=== PATIENT | male | born 1960 | race Caucasian/White ===

== ENCOUNTER → 2016-12-15 | Outpatient (CLI) | payer OTHER ==
--- NOTE | 2016-12-15 14:55 | DIAGNOSTIC IMAGING REPORT ---
VENOUS DOPPLER UPR EXT UNIL CLINICAL HISTORY: 56 years-old Male presenting with thoracic outlet syndrome. TECHNIQUE: Pulse volume recording of the bilateral upper extremities was performed. Provocative maneuvers to assess for thoracic elbow syndrome are performed. COMPARISON: None. FINDINGS: Baseline arterial waveforms of the upper extremities are normal bilaterally at rest. No significant change on the provocative maneuvers to suggest obstruction. IMPRESSION: No evidence of thoracic outlet syndrome. Electronically signed by: Jacek Fernando M.D. 12/15/2016 2:53 PM Dictated Date/Time: 12/15/2016 2:34 PM
== END | disposition home or self-care (01) ==
LOC: C.ULTR 13:23
PROVIDERS: ATTEND Surgery
DX: G54.0 Brachial plexus disorders (principal)